=== PATIENT | female | born 1975 | race Caucasian/White ===

== ENCOUNTER → 2020-06-10 09:27 | Outpatient (CLI) | payer BC, SELFPAY ==
[2020-06-10 10:03] LABS: Hemoglobin 13.9 g/dL (12.0-16.0); Mean Corpuscular HGB Conc 33.9 % (30-36); Mean Corpuscular Hemoglobin 30.8 PG (26-34); Mean Corpuscular Volume 90.8 fL (80-100); Platelet Count 276 X10^3/uL (150-400); Red Blood Cell Count 4.52 X10^6/uL (4.0-5.2); Red Cell Distribution Width 13.3 % (11.6-14.8); White Blood Cell Count 5.4 X10^3/uL (4.5-11.0)
[2020-06-10 10:22] LABS: Alanine Aminotransferase 23 IU/L (<35); Albumin 4.4 g/dL (3.5-5.0); Albumin Globulin Ratio 1.5 (1.0-2.8); Alkaline Phosphatase 49 U/L (38-126); Aspartate Aminotransferase 27 IU/L (14-36); BUN Creatinine Ratio 15.2 (6-22); Bilirubin Total 0.7 mg/dL (0.2-1.3); Blood Urea Nitrogen 14 mg/dL (7-17); Calcium 9.4 mg/dL (8.4-10.2); Carbon Dioxide 29 mmol/L (22-32); Chloride 103 mmol/L (98-107); Estimated Glomerular Filt Rate > 60.0 mL/min (>60); Glucose 97 mg/dL (70-100); HEMOLYSIS < 15 (0-50); Potassium 4.2 mmol/L (3.4-5.1); Sodium 137 mmol/L (137-145); Total Protein 7.4 g/dL (6.3-8.2)
[2020-06-10 10:47] LABS: TSH w/ Reflex to FT4 0.95 uIU/mL (0.47-4.68)
[2020-06-10 11:17] LABS: Urine N gonorrhoeae NOT DETECTED
[2020-06-10 11:28] LABS: Urine Chlamydia NOT DETECTED
[2020-06-10 17:08] LABS: HIV 1 & 2 Ab/Ag 4th Gen Combo NEGATIVE (NEGATIVE); Hep C Virus Ab w/Reflex Quant NEGATIVE s/c (NEGATIVE); Hepatitis B Surface Antigen NEGATIVE s/c (NEGATIVE)
[2020-06-11 06:01] LABS: RPR Screen Non Reactive (Non Reactive)
[2020-06-13 19:06] LABS: HSV 2 IGG AB 3.03 index (0.00-0.90); HSV1IGG 5.99 index (0.00-0.90)
== END ==
PROVIDERS: PCP Nurse Practitioner Family; Referring Provider Nurse Practitioner Family; Visit Provider Nurse Practitioner Family
DX: Z00.00 Encounter for general adult medical examination without abnormal findings (principal); Z20.2 Contact with and (suspected) exposure to infections with a predominantly sexual mode of transmission; R63.5 Abnormal weight gain
CPT/HCPCS: 36415; 80053; 84443; 85027; 86592; 86695; 86696; 86803; 87340; 87389; 87491; 87591

== ENCOUNTER → 2020-08-02 16:56 | Outpatient (CLI) | payer BC, SELFPAY ==
--- NOTE | 2020-08-02 16:59 | DI.MG.S_ITS ---
BILATERAL DIGITAL SCREENING MAMMOGRAM 3D/2D WITH CAD: 08/02/2020 CLINICAL: Routine screening. Comparison is made to exams dated: 10/25/2016 mammogram and 10/20/2015 mammogram - outside location. The tissue of both breasts is heterogeneously dense. This may lower the sensitivity of mammography. Current study was also evaluated with a Computer Aided Detection (CAD) system. There is an oval low density asymmetry with an indistinct margin in the left breast posterior depth central to the nipple seen on the mediolateral oblique view only. There also is an oval low density focal asymmetry with an indistinct margin in the left breast at 8 o'clock middle depth. No other significant masses, calcifications, or other findings are seen in either breast. IMPRESSION: INCOMPLETE: NEEDS ADDITIONAL IMAGING EVALUATION The oval low density asymmetry in the left breast posterior depth central to the nipple seen on the mediolateral oblique view only is indeterminate. Mediolateral, exaggerated CC, and spot compression views as well as additional views with possible ultrasound are recommended. The oval low density focal asymmetry in the left breast at 8 o'clock middle depth is indeterminate. Mediolateral and spot compression views as well as additional views with possible ultrasound are recommended. This exam was interpreted at Station ID: [id number]. NOTE: For mammograms, a report in lay terms will be sent to the patient. Approximately 15% of breast malignancies will not be visualized mammographically. In the management of a palpable breast mass, a negative mammogram must not discourage biopsy of a clinically suspicious lesion. Electronically Signed By: Cheikh segura/marlen:08/03/2020 09:16:56 letter sent: Additional Imaging Needed ACR BI-RADS Category 0: Incomplete 3340F
== END ==
PROVIDERS: PCP Nurse Practitioner Family; Referring Provider Nurse Practitioner Family; Visit Provider Nurse Practitioner Family
DX: Z12.31 Encounter for screening mammogram for malignant neoplasm of breast (principal)
CPT/HCPCS: 77063; 77067

== ENCOUNTER → 2020-08-23 07:47 | Outpatient (CLI) | payer BC, SELFPAY ==
[2020-08-23 09:01] LABS: Cholesterol 212 mg/dL (140-199); HDL Cholesterol 65 mg/dL (40-60); LDL Cholesterol Calculated 132 mg/dL (<100); Triglycerides 73 mg/dL (35-150)
== END ==
PROVIDERS: PCP Nurse Practitioner Family; Referring Provider Nurse Practitioner Family; Visit Provider Nurse Practitioner Family
DX: Z13.6 Encounter for screening for cardiovascular disorders (principal)
CPT/HCPCS: 36415; 80061

== ENCOUNTER → 2020-08-24 14:54 | Outpatient (CLI) | payer BC, SELFPAY ==
--- NOTE | 2020-08-24 | DI.MG.S_ITS ---
UNILATERAL LEFT DIGITAL DIAGNOSTIC MAMMOGRAM 3D/2D WITH ADDITIONAL VIEWS: 08/24/2020 CLINICAL: Additional evaluation requested from prior study. Comparison is made to exams dated: 08/02/2020 mammogram - [facility], 10/25/2016 mammogram, and 10/20/2015 mammogram - outside location. The tissue of left breast is heterogeneously dense. This may lower the sensitivity of mammography. There is a focal asymmetry in the left breast at 10 o'clock posterior depth. This is seen in additional views. There also is a focal asymmetry in the left breast at 9 o'clock middle depth. This is seen in additional views. Additionally, there is a focal asymmetry in the left breast at 9 o'clock middle depth. This is seen in additional views. No other significant masses or calcifications are seen in the breast. IMPRESSION: INCOMPLETE: NEEDS ADDITIONAL IMAGING EVALUATION The focal asymmetry in the left breast at 10 o'clock posterior depth is indeterminate. An ultrasound is recommended. The focal asymmetry in the left breast at 9 o'clock middle depth is indeterminate. An ultrasound is recommended. The focal asymmetry in the left breast at 9 o'clock middle depth is indeterminate. An ultrasound is recommended. A targeted ultrasound of the left breast is recommended and will be performed immediately following this exam. This exam was interpreted at Station ID: [id number]. NOTE: For mammograms, a report in lay terms will be sent to the patient. Approximately 15% of breast malignancies will not be visualized mammographically. In the management of a palpable breast mass, a negative mammogram must not discourage biopsy of a clinically suspicious lesion. Electronically Signed By: Jo Ann davenport/:08/24/2020 15:51:02 letter sent: Additional Imaging Needed ACR BI-RADS Category 0: Incomplete 3340F
--- NOTE | 2020-08-24 14:57 | DI.US.S_ITS ---
LIMITED ULTRASOUND OF LEFT BREAST AND AXILLA: 08/24/2020 CLINICAL: Patient returns today to evaluate a densities in the left breast. Comparison is made to exams dated: 08/24/2020 mammogram and 08/02/2020 mammogram - [facility]. Ultrasound of the left breast 6-10 o'clock, and axilla regions was performed on the areas of interest. Joyce scale images of the real-time examination were reviewed. There is a 0.9 cm x 0.6 cm x 0.8 cm oval mass in the left breast at 10 o'clock posterior depth. This oval mass is hypoechoic. This likely correlates with mammography findings. There also is a 0.5 cm x 0.5 cm x 0.7 cm mass in the left breast at 9 o'clock middle depth. This mass is hypoechoic. This likely correlates with mammography findings. Color flow imaging demonstrates that there is vascularity present. THere is no definite correlate to the focal asymmetry in the left breast at 8 o'clock, middle depth. IMPRESSION: SUSPICIOUS OF MALIGNANCY The 0.9 cm x 0.6 cm x 0.8 cm oval mass in the left breast at 10 o'clock posterior depth is at a low suspicion for malignancy. An ultrasound guided biopsy is recommended. The 0.5 cm x 0.5 cm x 0.7 cm mass in the left breast at 9 o'clock middle depth is at a low suspicion for malignancy. An ultrasound guided biopsy is recommended. The focal asymmetry in the left breast at 8 o'clock without ultrasound correlate is probably benign. 6 month mammogram and ultrasound recommended. This exam was interpreted at Station ID: [id number]. SUMMARY: This was discussed with the patient by the radiologist Dr. Clements at the time of the exam. Electronically Signed By: Jo Ann davenport/:08/25/2020 10:29:57 letter sent: Biopsy Required Ultrasound BI-RADS: 4a Low suspicion for malignancy
== END ==
PROVIDERS: PCP Nurse Practitioner Family; Referring Provider Nurse Practitioner Family; Visit Provider Nurse Practitioner Family
DX: R92.8 Other abnormal and inconclusive findings on diagnostic imaging of breast (principal); N63.22 Unspecified lump in the left breast, upper inner quadrant; N63.25 Unspecified lump in the left breast, overlapping quadrants; N64.89 Other specified disorders of breast
CPT/HCPCS: 76642; 77065; G0279

== ENCOUNTER → 2020-09-09 12:43 | Outpatient (CLI) | payer BC, SELFPAY ==
--- NOTE | 2020-09-09 | DI.MG.S_ITS ---
UNILATERAL LEFT DIGITAL DIAGNOSTIC MAMMOGRAM POST-NEEDLE BIOPSY: 09/09/2020 CLINICAL: Left breast mass. Comparison is made to exams dated: 08/24/2020 mammogram, 08/02/[address] - [facility], and 10/25/2016 mammogram - outside location. The tissue of left breast is heterogeneously dense. This may lower the sensitivity of mammography. There is a marker clip in the appropriate position in the left breast at 10 o'clock This marker clip placement is at the biopsy site. There also is a marker clip in the appropriate position in the left breast at 8-9 o'clock This marker clip placement is at the biopsy site. IMPRESSION: POST PROCEDURE MAMMOGRAM FOR MARKER PLACEMENT There was a successful marker clip placement in the left breast at 10 o'clock There was a successful marker clip placement in the left breast at 8-9 o'clock This exam was interpreted at Station ID: [id number]. NOTE: For mammograms, a report in lay terms will be sent to the patient. Approximately 15% of breast malignancies will not be visualized mammographically. In the management of a palpable breast mass, a negative mammogram must not discourage biopsy of a clinically suspicious lesion. Electronically Signed By: Eduardo ac/:09/09/2020 16:03:46 ACR BI-RADS Category Post-procedure mammogram for marker placement
--- NOTE | 2020-09-09 | PATH_ITS ---
[facility] Accession Number: [id number] . 01 Material submitted: . breast - MID LEFT BREAST MASS 9:00 . 01 Diagnosis: A. Left Breast, Mid, At 9:00, Mass, Biopsy: Fragments of fibroadenoma. Negative for atypia, carcinoma in situ, and malignancy. [facility] 09/12/2020 0900 Local . 01 Comment: Clinical and radiographic correlation is necessary. . 01 Electronically signed: . Klaudia De Luna MD, Pathologist NPI- [id number] . 01 Gross description: . The specimen is received in formalin, labeled #2 9:00, are five pieces love adipose tissue measuring 1.7 x 0.3 x 0.3 cm to 0.7 x 0.4 x 0.2 cm. All five pieces are entirely submitted in cassette A1. Collection date and time are listed as 09/09/20 at 14:18 p.m., for a total fixation time after processing of approximately 45 hours. ([id number]) /FRR 09/11/2020 1500 Local . 01 Pathologist provided ICD-10: D24.2 . 01 CPT . 508599 Performed at: 01 [facility] [address] [place] [address] [facility], [place], [place] [id number] MD Cheikh Pickett MD Phone: [phone]
--- NOTE | 2020-09-09 | PATH_ITS ---
[facility] Accession Number: [id number] . 01 Material submitted: . breast - LEFT BREAST MASS 10:00 . 01 Diagnosis: A. Left Breast, Mass At 10:00, Biopsy: Fragments of fibroadenoma. Microcalcifications associated with background breast tissue. Negative for atypia, carcinoma in situ, and malignancy. [facility] 09/12/2020 0858 Local . 01 Comment: Clinical and radiographic correlation is necessary. . 01 Electronically signed: . Klaudia De Luna MD, Pathologist NPI- [id number] . 01 Gross description: . The specimen is received in formalin, labeled #1 10:00, are five pieces love adipose tissue measuring 1.4 x 0.3 x 0.3 cm to 0.6 x 0.3 x 0.3 cm. All five pieces are entirely submitted in cassette A1. Collection date and time are listed as 09/09/20 at 14:18 p.m., for a total fixation time after processing of approximately 45 hours. ([id number]) /FRR 09/11/2020 1458 Local . 01 Pathologist provided ICD-10: D24.2 . 01 CPT . 374608 Performed at: 01 [facility] [address] [place] [address] [address], [place], [place] [id number] MD Cheikh Pickett MD Phone: [phone]
--- NOTE | 2020-09-09 12:45 | DI.US.S_ITS ---
MULTIPLE ULTRASOUND GUIDED BIOPSIES LEFT BREAST USING VACUUM DEVICE WITH MARKING DEVICES INSERTED: 09/09/2020 CLINICAL: Left breast mass x 2. PATIENT CONSENT: Risks (minor bleeding, infection, vasovagal reaction and repeat procedure), benefits and alternatives were explained to the patient and written informed consent was obtained. Correlation is made to exams dated: 08/24/2020 ultrasound, 08/24/2020 mammogram, 08/02/2020 mammogram - [facility], and 10/25/2016 mammogram - outside location. An ultrasound guided biopsy using real-time ultrasound was performed for the mass located in the left breast at 10 o'clock posterior depth. The skin was prepped in the usual manner. Local anesthetic was administered to the access site. A small incision was made in the breast. The abnormality was approached from the medial aspect. A biopsy needle was placed adjacent to the abnormality under ultrasound guidance. Once the needle was documented to be in the correct location, five specimens were obtained using the Mammotome biopsy system. The patient received additional local anesthetic during the procedure. A Celero clip was inserted into the biopsy cavity. The specimens were sent to the laboratory for pathological analysis. A second ultrasound guided biopsy using real-time ultrasound was performed for the mass located in the left breast at 9 o'clock posterior depth. The skin was prepped in the usual manner. Local anesthetic was administered to the access site. The abnormality was approached from the medial aspect. A biopsy needle was placed adjacent to the abnormality under ultrasound guidance. Once the needle was documented to be in the correct location, four specimens were obtained using the Mammotome biopsy system. The patient received additional local anesthetic during the procedure. A Vision clip was inserted into the biopsy cavity. The specimens were sent to the laboratory for pathological analysis. IMPRESSION: ULTRASOUND GUIDED BIOPSY BENIGN Ultrasound guided biopsy of the mass in the left breast at 10 o'clock posterior depth was successful. Pathology indicates benign fibroadenoma (FA). Pathology results are concordant with imaging findings. Ultrasound guided biopsy of the mass in the left breast at 9 o'clock posterior depth was successful. Pathology indicates benign fibroadenoma (FA). Pathology results are concordant with imaging findings. A follow-up left mammogram and an ultrasound in 6 months is recommended to demonstrate stability of a third lesion seen in the 8:00 position on mammogram only. Results and recommendations will be communicated to the ordering provider's office. This exam was interpreted at Station ID: [id number]. Eduardo ac,krg/:09/19/2020 08:58:49
== END ==
PROVIDERS: PCP Nurse Practitioner Family; Referring Provider Nurse Practitioner Family; Visit Provider Nurse Practitioner Family
DX: D24.2 Benign neoplasm of left breast (principal)
CPT/HCPCS: 19083; 19084; 77065

== ENCOUNTER → 2021-04-07 08:45 | Outpatient (CLI) | payer BC, SELFPAY ==
--- NOTE | 2021-04-07 08:46 | DI.US.S_ITS ---
LIMITED ULTRASOUND OF LEFT BREAST: 04/07/2021 CLINICAL: Patient returns today to evaluate a focal asymmetry in the left breast. Comparison is made to exams dated: 04/07/2021 mammogram, 09/09/2020 mammogram, 09/09/2020 ultrasound biopsy, 08/24/2020 ultrasound, 08/24/2020 mammogram, and 08/02/2020 mammogram - [facility]. Color flow ultrasound of the left breast was performed. Joyce scale images of the real-time examination were reviewed. There is a benign oval mass in the left breast at 9 o'clock posterior depth. This oval mass is hypoechoic. This correlates with mammography findings and the previous biopsy. There also is a benign mass in the left breast at 8 o'clock posterior depth. This mass is hypoechoic. This correlates with mammography findings and the previous biopsy. IMPRESSION: PROBABLY BENIGN No sonographic abnormality is seen corresponding to the mammographic focal asymmetry in the left breast 8 o'clock position. Follow up left breast mammogram in 6 months is recommended to demonstrate stability. The oval mass in the left breast at 9 o'clock posterior depth is consistent with a fibroadenoma and is benign. The mass in the left breast at 8 o'clock posterior depth is consistent with a fibroadenoma and is benign. A follow-up mammogram in 6 months is recommended to demonstrate stability. This exam was interpreted at Station ID: [id number]. Electronically Signed By: Zaid vargas/marlen:04/10/2021 12:33:31 letter sent: Followup Recommended Ultrasound BI-RADS: 3 Probably benign
--- NOTE | 2021-04-07 08:46 | DI.MG.S_ITS ---
UNILATERAL LEFT DIGITAL DIAGNOSTIC MAMMOGRAM 3D/2D: 04/07/2021 CLINICAL: Short term follow up for the left breast. Comparison is made to exams dated: 09/09/2020 mammogram, 09/09/2020 ultrasound biopsy, 08/24/2020 ultrasound, 08/24/2020 mammogram, 08/02/2020 mammogram - [facility], and 10/25/2016 mammogram - outside location. The tissue of left breast is heterogeneously dense. This may lower the sensitivity of mammography. There is a focal asymmetry in the left breast at 8 o'clock middle depth. This is not significantly changed and was not seen on the prior ultrasound. There also is a benign oval mass in the left breast at 10 o'clock posterior depth. This is not significantly changed and correlates with the biopsy. There is a biopsy clip associated with the mass. Additionally, there is a benign oval mass in the left breast at 8 o'clock posterior depth. This is not significantly changed and correlates with the biopsy. There is a biopsy clip associated with the mass. No other significant masses or calcifications are seen in the breast. IMPRESSION: INCOMPLETE: NEEDS ADDITIONAL IMAGING EVALUATION The focal asymmetry in the left breast at 8 o'clock middle depth is indeterminate. An ultrasound is recommended. This exam was interpreted at Station ID: [id number]. NOTE: For mammograms, a report in lay terms will be sent to the patient. Approximately 15% of breast malignancies will not be visualized mammographically. In the management of a palpable breast mass, a negative mammogram must not discourage biopsy of a clinically suspicious lesion. Electronically Signed By: Zaid vargas/marlen:04/07/2021 11:38:20 ACR BI-RADS Category 0: Incomplete [id number]
== END ==
PROVIDERS: PCP Nurse Practitioner Family; Referring Provider Nurse Practitioner Family; Visit Provider Nurse Practitioner Family
DX: N63.24 Unspecified lump in the left breast, lower inner quadrant (principal); R92.8 Other abnormal and inconclusive findings on diagnostic imaging of breast; N63.25 Unspecified lump in the left breast, overlapping quadrants; N64.89 Other specified disorders of breast
CPT/HCPCS: 76642; 77065; G0279

== ENCOUNTER → 2021-10-20 14:14 | Outpatient (CLI) | payer BC, SELFPAY ==
--- NOTE | 2021-10-20 14:16 | DI.MG.S_ITS ---
BILATERAL DIGITAL DIAGNOSTIC MAMMOGRAM 3D/2D: 10/20/2021 CLINICAL: Short term follow up for the left breast. Comparison is made to exams dated: 04/07/2021 ultrasound, 04/07/2021 mammogram, 08/02/2020 mammogram, and 08/24/2020 mammogram - [facility]. The tissue of both breasts is heterogeneously dense. This may lower the sensitivity of mammography. There is a focal asymmetry in the left breast at 11 o'clock posterior depth. There also is a stable asymmetry in the left breast at 9 o'clock posterior depth. No other significant masses, calcifications, or other findings are seen in either breast. IMPRESSION: PROBABLY BENIGN No sonographic abnormality is seen corresponding to the mammographic focal asymmetry in the left breast 8 o'clock position. Follow up left breast mammogram in 6 months is recommended to demonstrate stability. The focal asymmetry in the left breast at 11 o'clock posterior depth is probably benign. A follow-up mammogram in 6 months is recommended. The stable asymmetry in the left breast at 9 o'clock posterior depth is probably benign. A follow-up mammogram in 6 months is recommended. A follow-up mammogram in 6 months is recommended to demonstrate stability. This exam was interpreted at Station ID: [id number]. NOTE: For mammograms, a report in lay terms will be sent to the patient. Approximately 15% of breast malignancies will not be visualized mammographically. In the management of a palpable breast mass, a negative mammogram must not discourage biopsy of a clinically suspicious lesion. Electronically Signed By: Miguel Angel Fu M.D., jr/marlen:10/20/2021 14:37:03 letter sent: Followup Recommended ACR BI-RADS Category 3: Probably benign [id number]
== END ==
PROVIDERS: PCP Nurse Practitioner Family; Referring Provider Nurse Practitioner Family; Visit Provider Nurse Practitioner Family
DX: R92.8 Other abnormal and inconclusive findings on diagnostic imaging of breast (principal); N64.89 Other specified disorders of breast
CPT/HCPCS: 77066; G0279

== ENCOUNTER → 2021-12-14 07:02 | Outpatient (CLI) | payer BC, SELFPAY ==
[2021-12-14 08:31] LABS: Hemoglobin 14.4 g/dL (12.0-16.0); Mean Corpuscular HGB Conc 34.3 % (30-36); Mean Corpuscular Volume 90.3 fL (80-100); Platelet Count 273 X10^3/uL (150-400); Red Blood Cell Count 4.64 X10^6/uL (4.0-5.2); Red Cell Distribution Width 13.4 % (11.6-14.8); White Blood Cell Count 5.9 X10^3/uL (4.5-11.0)
[2021-12-14 09:01] LABS: Alanine Aminotransferase 21 IU/L (<35); Albumin 4.4 g/dL (3.5-5.0); Albumin Globulin Ratio 1.6 (1.0-2.8); Alkaline Phosphatase 43 U/L (38-126); Aspartate Aminotransferase 26 IU/L (14-36); BUN Creatinine Ratio 16.3 (6-22); Bilirubin Total 0.4 mg/dL (0.2-1.3); Blood Urea Nitrogen 14 mg/dL (7-17); Carbon Dioxide 32 mmol/L (22-32); Chloride 103 mmol/L (98-107); Cholesterol 204 mg/dL (140-199); Estimated Glomerular Filt Rate > 60 mL/min (>60); Globulin 2.7 g/dL (1.7-4.1); Glucose 91 mg/dL (70-100); HDL Cholesterol 65 mg/dL (40-60); HEMOLYSIS < 15 (0-50); LDL Cholesterol Calculated 121 mg/dL (<100); Potassium 3.8 mmol/L (3.4-5.1); Sodium 140 mmol/L (137-145); Total Protein 7.1 g/dL (6.3-8.2); Triglycerides 92 mg/dL (35-150)
[2021-12-14 12:03] LABS: Urine Chlamydia NOT DETECTED
[2021-12-14 12:04] LABS: Urine N gonorrhoeae NOT DETECTED
[2021-12-14 16:34] LABS: HIV 1 & 2 Ab/Ag 4th Gen Combo NEGATIVE (NEGATIVE); Hep C Virus Ab w/Reflex Quant NEGATIVE s/c (NEGATIVE); Hepatitis B Surface Antigen NEGATIVE s/c (NEGATIVE)
[2021-12-15 05:32] LABS: RPR Screen Non Reactive (Non Reactive)
== END ==
PROVIDERS: PCP Nurse Practitioner Family; Referring Provider Nurse Practitioner Family; Visit Provider Nurse Practitioner Family
DX: E78.2 Mixed hyperlipidemia (principal); Z00.00 Encounter for general adult medical examination without abnormal findings; Z20.2 Contact with and (suspected) exposure to infections with a predominantly sexual mode of transmission
CPT/HCPCS: 36415; 80053; 80061; 85027; 86592; 86803; 87340; 87389; 87491; 87591

== ENCOUNTER → 2022-04-18 10:22 | Outpatient (CLI) | payer BC, SELFPAY ==
--- NOTE | 2022-04-18 | DI.MG.S_ITS ---
UNILATERAL LEFT DIGITAL DIAGNOSTIC MAMMOGRAM 3D/2D SHORT-TERM FOLLOW-UP: 04/18/2022 CLINICAL: Left breast short term follow. Comparison is made to exams dated: 10/20/2021 mammogram, 04/07/2021 mammogram, 09/09/2020 mammogram, and 08/24/2020 mammogram - [facility]. The tissue of left breast is heterogeneously dense. This may lower the sensitivity of mammography. There is a stable focal asymmetry in the left breast at 11 o'clock posterior depth. There also is a stable asymmetry in the left breast at 9 o'clock posterior depth. No other significant masses or calcifications are seen in the breast. IMPRESSION: INCOMPLETE: NEEDS ADDITIONAL IMAGING EVALUATION Stable focal asymmetry in the left breast at 11 o'clock posterior depth. Stable asymmetry in the left breast at 9 o'clock posterior depth. An ultrasound is recommended to document sonographic stability. Based on the Tyrer Cuzick model (a risk assessment model) the patient's lifetime risk is 14.4% and her 10 year risk is 3.0%. According to the ACR, ACS, and NCCN guidelines, an annual breast MRI exam along with mammogram is recommended if the patient's lifetime risk is 20% or greater. This exam was interpreted at Station ID: [id number]. NOTE: For mammograms, a report in lay terms will be sent to the patient. Approximately 15% of breast malignancies will not be visualized mammographically. In the management of a palpable breast mass, a negative mammogram must not discourage biopsy of a clinically suspicious lesion. Electronically Signed By: Miguel Angel Fu M.D. jr/:04/18/2022 14:07:40 ACR BI-RADS Category 0: Incomplete [id number]
--- NOTE | 2022-04-18 10:24 | DI.US.S_ITS ---
LIMITED ULTRASOUND OF LEFT BREAST: 04/18/2022 CLINICAL: Patient returns today to evaluate a focal asymmetry in the left breast. Comparison is made to exams dated: 04/18/2022 mammogram, 04/18/2022 mammogram, 10/20/2021 mammogram, 04/07/2021 ultrasound, 04/07/2021 mammogram, and 09/09/2020 mammogram - [facility]. Color flow and real-time ultrasound of the left breast were performed. Joyce scale images of the real-time examination were reviewed. Additionally, there is a new irregular mass in the left breast at 8 o'clock posterior depth. This irregular mass is hypoechoic with posterior acoustic shadowing. Color flow imaging demonstrates that there is no vascularity present. Previously biopsied masses are stable. IMPRESSION: PROBABLY BENIGN No sonographic abnormality is seen corresponding to the mammographic focal asymmetry in the left breast 8 o'clock position. Follow up left breast mammogram in 6 months is recommended to demonstrate stability. The new irregular mass in the left breast at 8 o'clock posterior depth most likely is apocrine metaplasia or a complicated cyst and is probably benign. Follow-up mammogram and ultrasound in 6 months is recommended. A follow-up mammogram and an ultrasound in 6 months is recommended to demonstrate stability. This exam was interpreted at Station ID: [id number]. Electronically Signed By: Miguel Angel Fu M.D. jr/:04/18/2022 14:09:37 letter sent: Followup Recommended Ultrasound BI-RADS: 3 Probably benign
== END ==
PROVIDERS: PCP Internal Medicine; Referring Provider Internal Medicine; Visit Provider Internal Medicine
DX: R92.8 Other abnormal and inconclusive findings on diagnostic imaging of breast (principal); N63.24 Unspecified lump in the left breast, lower inner quadrant
CPT/HCPCS: 76642; 77065; G0279

== ENCOUNTER → 2023-01-22 08:50 | Outpatient (CLI) | payer BC, SELFPAY ==
--- NOTE | 2023-01-22 | DI.US.S_ITS ---
LIMITED ULTRASOUND OF LEFT BREAST: 01/22/2023 CLINICAL: 6 month follow-up of cysts. Comparison is made to exams dated: 01/22/2023 mammogram, 04/18/2022 ultrasound, 04/18/2022 mammogram, 08/24/2020 mammogram, 08/02/2020 mammogram, and 08/24/2020 ultrasound - [facility]. Color flow and real-time ultrasound of the left breast 8-9 o'clock region were performed. Joyce scale images of the real-time examination were reviewed. There is a benign oval mass in the left breast at 9 o'clock posterior depth. This oval mass is hypoechoic. This correlates with mammography findings and the previous biopsy. No mass is identified in the 8:00 region. IMPRESSION: BENIGN There is no sonographic evidence of malignancy. The mass in the left breast 9:00 is consistent with a biopsy proven fibroadenoma and is benign. No ultrasound correlate for the mammographic focal asymmetry in the left breast 8 o'clock position. This finding demonstrate long-term stability on mammogram and is benign. Exam findings were conveyed to the patient. Patient is advised to monitor for significant change. A 1 year screening mammogram is recommended. This exam was interpreted at Station ID: [id number]. Electronically Signed By: Grant Vidales M.D. slc/:01/22/2023 10:05:12 letter sent: Normal Exam Ultrasound BI-RADS: 2 Benign
--- NOTE | 2023-01-22 | DI.MG.S_ITS ---
BILATERAL DIGITAL DIAGNOSTIC MAMMOGRAM 3D/2D: 01/22/2023 CLINICAL: Short term follow up, due bilateral. Comparison is made to exams dated: 04/18/2022 mammogram, 10/20/2021 mammogram, 04/07/2021 mammogram, 09/09/2020 mammogram, 08/24/2020 mammogram, and 08/02/2020 mammogram - [facility]. Both breasts are heterogeneously dense, which may obscure small masses (category c / 51-75% glandular tissue). There is a stable focal asymmetry in the left breast at 8 o'clock posterior depth. There also is a stable benign focal asymmetry in the left breast at 10 o'clock posterior depth. This correlates with the biopsy. Additionally, there is a stable oval mass in the left breast at 9 o'clock posterior depth. This correlates with the biopsy. No other significant masses, calcifications, or other findings are seen in either breast. IMPRESSION: INCOMPLETE: NEEDS ADDITIONAL IMAGING EVALUATION Stable focal asymmetry in the left breast at 8 o'clock posterior depth resembles a fibroadenoma and is indeterminate. Stable focal asymmetry in the left breast at 10 o'clock posterior depth is consistent with biopsy proven fibroadenoma and is benign. Stable focal asymmetry in the left breast at 9 o'clock posterior depth is consistent with biopsy proven fibroadenoma and is benign. A targeted ultrasound is recommended and will immediately follow. Based on the Tyrer Cuzick model (a risk assessment model) the patient's lifetime risk is 14.4% and her 10 year risk is 3.0%. According to the ACR, ACS, and NCCN guidelines, an annual breast MRI exam along with mammogram is recommended if the patient's lifetime risk is 20% or greater. This exam was interpreted at Station ID: [id number]. NOTE: For mammograms, a report in lay terms will be sent to the patient. Approximately 15% of breast malignancies will not be visualized mammographically. In the management of a palpable breast mass, a negative mammogram must not discourage biopsy of a clinically suspicious lesion. Electronically Signed By: Grant Vidales M.D. slc/:01/22/2023 10:16:53 ACR BI-RADS Category 0: Incomplete [id number]
== END ==
PROVIDERS: PCP Internal Medicine; Referring Provider Internal Medicine; Visit Provider Internal Medicine
DX: R92.8 Other abnormal and inconclusive findings on diagnostic imaging of breast (principal); N64.89 Other specified disorders of breast
CPT/HCPCS: 76642; 77066; G0279

== ENCOUNTER → 2023-12-19 11:03 | Outpatient (CLI) | payer BC, SELFPAY ==
[2023-12-19 11:44] LABS: Influenza A - CEPHEID Flu A NEGATIVE (NEGATIVE); Influenza B - CEPHEID Flu B NEGATIVE (NEGATIVE); Respiratory Syncytial Virus Negative (Negative)
[2023-12-19 11:50] LABS: COVID-19 CEPHEID 4-PLEX PCR Negative (Negative)
== END ==
PROVIDERS: PCP Internal Medicine; Visit Provider Nurse Practitioner Family
DX: R05.1 Acute cough (principal)
CPT/HCPCS: 0241U

== ENCOUNTER 2024-01-12 19:17 | Emergency (ER) | payer OTHER, SELFPAY ==
[2024-01-12 19:32] VITALS: BP 159/87; PULSE 94; RESP 22; TEMP 37.2; O2SAT 100; BMI 30.4
[2024-01-12 20:55] VITALS: PULSE 82; O2SAT 100
[2024-01-12 21:00] VITALS: PULSE 82; RESP 18; O2SAT 97
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
[2024-01-12] MEDS: KETOROLAC 30 MG/ML VIAL IM (21:29)
[2024-01-12 22:00] VITALS: BP 154/83; PULSE 73; O2SAT 100
[2024-01-12 22:30] VITALS: BP 151/76; PULSE 73; O2SAT 97
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
[2024-01-12] MEDS: methocarbamoL 500 MG TABLET PO (23:09)
[2024-01-12] MEDS: TRAMADOL 50 MG TABLET PO (23:09)
[2024-01-12] MEDS: TRAMADOL 50 MG PREPACK 1 BOTTLE MISC (23:09)
== END 2024-01-12 23:16 | disposition home or self-care (01) ==
PROVIDERS: Emergency Provider Emergency Medicine; PCP Internal Medicine
DX: S16.1XXA Strain of muscle, fascia and tendon at neck level, initial encounter (principal); S00.33XA Contusion of nose, initial encounter; V43.52XA Car driver injured in collision with other type car in traffic accident, initial encounter; Y92.410 Unspecified street and highway as the place of occurrence of the external cause
CPT/HCPCS: 70450; 70486; 72125; 96372; 99284; J1885

== ENCOUNTER → 2024-03-27 15:41 | Outpatient (CLI) | payer BC, SELFPAY ==
--- NOTE | 2024-03-27 | DI.MG.S_ITS ---
BILATERAL DIGITAL SCREENING MAMMOGRAM 3D/2D WITH CAD: 03/27/2024 CLINICAL: Routine screening. Comparison is made to exams dated: 01/22/2023 mammogram, 10/20/2021 mammogram, and 08/02/2020 mammogram - [facility]. Both breasts are heterogeneously dense, which may obscure small masses (category c / 51-75% glandular tissue). Current study was also evaluated with a Computer Aided Detection (CAD) system. There are biopsy clips in the left breast. No significant masses, calcifications, or other findings are seen in either breast. There has been no significant interval change. IMPRESSION: NEGATIVE There is no mammographic evidence of malignancy. A 1 year screening mammogram is recommended. Based on the Tyrer Cuzick model (a risk assessment model) the patient's lifetime risk is 14.5% and her 10 year risk is 3.1%. According to the ACR, ACS, and NCCN guidelines, an annual breast MRI exam along with mammogram is recommended if the patient's lifetime risk is 20% or greater. This exam was interpreted at Station ID: [id number]. NOTE: For mammograms, a report in lay terms will be sent to the patient. Approximately 15% of breast malignancies will not be visualized mammographically. In the management of a palpable breast mass, a negative mammogram must not discourage biopsy of a clinically suspicious lesion. Electronically Signed By: Grant gustafson/marlen:03/27/2024 16:02:22 letter sent: Normal Exam ACR BI-RADS Category 1: Negative [id number]
== END ==
PROVIDERS: PCP Internal Medicine; Referring Provider Internal Medicine; Visit Provider Internal Medicine
DX: Z12.31 Encounter for screening mammogram for malignant neoplasm of breast (principal); R92.333 Mammographic heterogeneous density, bilateral breasts
CPT/HCPCS: 77063; 77067

== ENCOUNTER → 2025-01-22 09:46 | Outpatient (CLI) | payer BC, SELFPAY ==
--- NOTE | 2025-01-22 09:49 | DI.RAD.S_ITS ---
PROCEDURE: XR CERVICAL SPINE 2V OR 3V INDICATIONS: Radiculopathy, cervical region TECHNIQUE: Three view(s) of the cervical spine were acquired. COMPARISON: None. FINDINGS: Bones: Normal mineralization. No acute vertebral body fractures. Mild posterior endplate spurring at the C5-6 level. Normal alignment. Moderate disc height loss C5-6. Otherwise normal disc spacing. Odontoid view is normal. Soft tissues: No prevertebral soft tissue swelling. IMPRESSION: [id number] disc and endplate degeneration C5-6. Correlate with level of radiculopathy. Dictated by: Komal Del Cid M.D. on 01/22/2025 at 12:35 Approved by: Komal Del Cid M.D. on 01/22/2025 at 12:36
== END ==
PROVIDERS: PCP Registered Nurse; Referring Provider Registered Nurse; Visit Provider Registered Nurse
DX: M54.12 Radiculopathy, cervical region (principal); M47.12 Other spondylosis with myelopathy, cervical region; M50.322 Other cervical disc degeneration at C5-C6 level
CPT/HCPCS: 72040

== ENCOUNTER → 2025-01-22 19:10 | Outpatient (CLI) | payer BC, SELFPAY ==
--- NOTE | 2025-01-22 19:13 | DI.MRI.S_ITS ---
PROCEDURE: MR CERVICAL SPINE WO CON INDICATIONS: CERVICAL RADICULAR PAIN,MYELOPATHY DUE TO SPONDYLO TECHNIQUE: Noncontrast sagittal T1 spin echo and T2 fast spin echo, sagittal STIR, foraminal oblique sagittal T2 fast spin echo, and axial gradient echo or T2 fast spin echo through the cervical spine. COMPARISON: [facility], CT, CT CERVICAL SPINE WO CON, 01/12/2024, 21:36. [facility], CR, XR CERVICAL SPINE 2V OR 3V, 01/22/2025, 9:44. FINDINGS: Image quality: Excellent. Alignment and Curvature: Loss of normal cervical lordosis. 2 mm of retrolisthesis of C5 on C6. Bone Marrow: Marrow demonstrates normal overall signal. Minimal reactive signal within the endplates adjacent to the C5-C6 and C6-C7 intervertebral discs. Spinal Cord: Visualized spinal cord has normal size and signal. No cerebellar tonsillar herniation. Paraspinous Soft Tissues: No paravertebral masses. Prevertebral soft tissues are normal in thickness. C2-C3: Normal appearance. C3-C4: Mild disc desiccation. Mild facet and uncovertebral hypertrophy. No significant canal stenosis. Mild bilateral foraminal stenosis. C4-C5: Mild disc desiccation. Mild facet and uncovertebral hypertrophy. No significant canal stenosis. Mild bilateral foraminal stenosis. C5-C6: Moderate disc desiccation. Mild disc height loss and diffuse disc bulge. Moderate left and mild right facet and uncovertebral hypertrophy. Moderate canal stenosis. Severe left and moderate right foraminal stenosis. Left C6 nerve root compression. C6-C7: Moderate disc desiccation. Mild disc height loss and diffuse disc bulge. Mild facet and uncovertebral hypertrophy. Mild canal stenosis. Mild bilateral foraminal stenosis. C7-T1: Normal appearance. IMPRESSION: 1. Multilevel degenerative disc and facet disease, as well as uncovertebral hypertrophy. 2. Multilevel canal stenoses, worst at C5-C6 where there is moderate canal stenosis. 3. Multilevel foraminal stenoses, worst at C5-C6 and C6-C7 where there is associated intraforaminal nerve root compression. Recommend correlation with clinical symptoms to ascertain relevance of these findings. Dictated by: Jaquan Parham M.D. on 01/26/2025 at 12:25 Approved by: Jaquan Parham M.D. on 01/26/2025 at 12:27
== END ==
PROVIDERS: PCP Registered Nurse; Referring Provider Registered Nurse; Visit Provider Registered Nurse
DX: M54.12 Radiculopathy, cervical region (principal); M47.12 Other spondylosis with myelopathy, cervical region; M50.322 Other cervical disc degeneration at C5-C6 level; M50.30 Other cervical disc degeneration, unspecified cervical region; M48.02 Spinal stenosis, cervical region; M47.812 Spondylosis without myelopathy or radiculopathy, cervical region
CPT/HCPCS: 72040; 72141

== ENCOUNTER → 2025-03-18 17:39 | Outpatient (CLI) | payer BC, SELFPAY ==
--- NOTE | 2025-03-18 17:40 | DI.RAD.S_ITS ---
PROCEDURE: XR ANKLE RT 2V INDICATIONS: Lat malleolus tender sharp pn w/weight bear TECHNIQUE: 2 views of the ankle were acquired. COMPARISON: None. FINDINGS: Bones: No fractures or dislocations. Ankle mortise is normally aligned. No suspicious bony lesions. Soft tissues: Nonspecific soft tissue edema is most prominent over the lateral malleolus. Suspected tibiotalar effusion. IMPRESSION: Approved by: Zaid Willams M.D. on 03/18/2025 at 18:22 Soft tissue edema is most prominent over the lateral malleolus. No acute osseous abnormality. If there is continued clinical concern or persistent symptoms, repeat radiographs or cross-sectional imaging (e.g. CT, MRI) may be helpful for further evaluation.
== END ==
LOC: RAD 17:40
PROVIDERS: PCP Registered Nurse; Referring Provider Student in an Organized Health Care Education/Training Program; Visit Provider Student in an Organized Health Care Education/Training Program
DX: S93.401A Sprain of unspecified ligament of right ankle, initial encounter (principal); M25.571 Pain in right ankle and joints of right foot; M79.89 Other specified soft tissue disorders; X58.XXXA Exposure to other specified factors, initial encounter
CPT/HCPCS: 73600

== ENCOUNTER → 2025-03-29 14:54 | Outpatient (CLI) | payer BC, SELFPAY ==
--- NOTE | 2025-03-29 14:55 | DI.MG.S_ITS ---
MM screening mammo BI: 03/29/2025. BI-RADS: 2 CLINICAL: 49-year old female for bilateral screening mammogram. Tyrer-Cuzick lifetime risk of 12.6%. No personal or first-degree family history of breast cancer. The patient had a prior left breast biopsy. PRIOR EXAMS 03/27/2024, 01/22/2023, 04/18/2022, 10/20/2021. MAMMOGRAPHY TECHNIQUE: 2D and 3D (tomosynthesis) digital mammographic views obtained, with additional images as needed for full coverage. Current study was also evaluated with a Computer Aided Detection (CAD) system. DENSITY C. The breasts are heterogeneously dense, which may obscure small masses. MAMMOGRAPHY FINDINGS Right: No suspicious mass, asymmetry, microcalcification, or other abnormality seen. Left: Biopsy markers present on the left. There are no suspicious masses, calcifications, or other findings in the breast. IMPRESSION: Right * No evidence of malignancy. Left * No evidence of malignancy with benign findings. RECOMMENDATIONS Bilateral * Annual screening mammography. OVERALL ASSESSMENT CATEGORY BI-RADS-2: Benign. The [employer] recommends annual screening mammography beginning at age 40 for women with average risk of breast cancer. ELECTRONICALLY SIGNED: Hilary Ward M.D. on 04/02/2025 at 11:44:07 AM PT Interpreting Station ID: [id number]
== END ==
LOC: MAMMO 14:55
PROVIDERS: PCP Registered Nurse; Referring Provider Registered Nurse; Visit Provider Registered Nurse
DX: Z12.31 Encounter for screening mammogram for malignant neoplasm of breast (principal); R92.333 Mammographic heterogeneous density, bilateral breasts
CPT/HCPCS: 77063; 77067